=== PATIENT | female | born 1955 | race Native Hawaiian/Other Pacific Islander ===

== ENCOUNTER 2018-10-26 08:15 | Day surgery (SDC) | payer OTHER ==
[~2018-10-26] VITALS: Ht 30.5 cm; Wt 0.5 kg
[2018-10-26 09:41] LABS: PLATELET COUNT 299 K/uL (152-353)
[2018-10-26 09:52] LABS: PARTIAL THROMBOPLASTIN TIME 23.3 SECONDS (24.5-33.6)
== END 2018-10-26 11:35 | disposition home or self-care (01) ==
LOC: OR 08:15
PROVIDERS: Pain Medicine Interventional Pain Medicine
PROC: 00HU3MZ Insertion of Neurostimulator Lead into Spinal Canal, Percutaneous Approach (ICD-10-PCS; principal; 2018-10-26)
PROC: 4B01XVZ Measurement of Peripheral Nervous Stimulator, External Approach (ICD-10-PCS; 2018-10-26)
DX: M54.12 Radiculopathy, cervical region (principal); B15.9 Hepatitis A without hepatic coma
CPT/HCPCS: 80053; 85027; 85610; 85730; 93005; J0690; J2001; J2405; J2704; J2765

== ENCOUNTER → 2018-11-02 | Day surgery (SDC) | payer OTHER | LOC: OR 01:00 | PROC: 00PU3MZ Removal of Neurostimulator Lead from Spinal Canal, Percutaneous Approach (ICD-10-PCS; principal; 2018-11-02) | DX: M54.12 Radiculopathy, cervical region (principal) | CPT/HCPCS: 93005 ==

== ENCOUNTER 2019-11-22 10:38 | Day surgery (SDC) | payer OTHER | END 2019-11-22 11:28 | disposition home or self-care (01) | LOC: OR 10:38 | PROC: 3E0R33Z Introduction of Anti-inflammatory into Spinal Canal, Percutaneous Approach (ICD-10-PCS; principal; 2019-11-22) | PROC: B01BYZZ Fluoroscopy of Spinal Cord using Other Contrast (ICD-10-PCS; 2019-11-22) | DX: M50.122 Cervical disc disorder at C5-C6 level with radiculopathy (principal) | CPT/HCPCS: J1020; J2001 ==